=== PATIENT | female | born 1955 | race Caucasian/White ===

== ENCOUNTER 2024-02-18 14:45 | Outpatient (RCR) | payer OTHER, SELFPAY | END 2024-04-11 14:53 | disposition home or self-care (01) | PROVIDERS: PCP Family Medicine; Visit Provider Physician Assistant | DX: S83.512A Sprain of anterior cruciate ligament of left knee, initial encounter (principal); S83.282A Other tear of lateral meniscus, current injury, left knee, initial encounter; Z51.89 Encounter for other specified aftercare | CPT/HCPCS: 97110; 97112; 97162 ==

== ENCOUNTER 2024-06-06 09:30 | Outpatient (RCR) | payer OTHER, MEDICARE, SELFPAY | END 2024-06-15 16:57 | disposition home or self-care (01) | PROVIDERS: PCP Family Medicine; Visit Provider Physician Assistant | DX: S83.282D Other tear of lateral meniscus, current injury, left knee, subsequent encounter (principal); S89.92XD Unspecified injury of left lower leg, subsequent encounter; S83.512A Sprain of anterior cruciate ligament of left knee, initial encounter; M25.562 Pain in left knee; M25.561 Pain in right knee; Z51.89 Encounter for other specified aftercare | CPT/HCPCS: 97110; 97112; 97161 ==